=== PATIENT | male | born 1935 | race Caucasian/White ===

== ENCOUNTER → 2016-11-14 | Day surgery (SDC) | payer MEDICARE ==
[~2016-11-14] VITALS: Ht 177.8 cm; Wt 81.5 kg
[~2016-11-14] MED LIST: ACETAMINOPHEN 1000 MG/100 ML VIAL IV SCH; ALBU6.7H INH; BUPIVACAINE LIPOSOME PF 1.3% 20 ML VIAL INFIL ONE; BUPIVACAINE/EPINEPHRINE 0.25% PF 30 ML VIAL ONE; BUPIVACAINE/EPINEPHRINE 0.5% 50 ML VIAL ONE; CHLORHEXIDINE GLUCONATE 2 % 1 PACK (2 CLOTHS) TOPICAL PRN; FERR1TAB58 PO; HYDR-3583 PO; INSULIN HUMAN REGULAR 1,000 UNITS/10 ML VIAL SQ PRN; KETOROLAC TROMETHAMINE 30 MG/ML (IVP) VIAL ONE; KETOROLAC TROMETHAMINE 60 MG/2 ML (IM) VIAL IM ONE; LACTATED RINGER'S 1000 ML IV PRN; METO25TA3 PO; METOPROLOL TARTRATE 25 MG TAB PO PRN; MIDAZOLAM HCL 2 MG/2 ML VIAL ONE; MORPHINE SULFATE 4 MG/ML INJ IV PRN; MULT1TAB84 PO; NITR0.4S SL; OMEP20TA PO; ONDANSETRON HCL 4 MG/2 ML VIAL IV PRN; POVIDONE IODINE 5% (ANTISEPSIS KIT) 4 APPLICATIONS EACH NARE PRN; PROPOFOL 200 MG/20 ML AMP IV ONE; SODIUM CHLORID 0.9% 500 ML IV PRN; SODIUM CHLORIDE 0.9% FLUSH 10 ML FLUSH IV FLUSH PRN; TEMA30CA PO; VITA100036 PO; VITA500T49 PO; ZOCO20TA PO; [UNRECOGNIZED DRUG - CODE] PO; ceFAZolin 2 GM PREMIX 50 ML IV SCH; fentaNYL CITRATE 1000 MCG/20 ML VIAL ONE; oxyCODONE/ACETAMINOPHEN 5 MG/325 MG TAB PO PRN
[2016-11-14 08:59] VITALS: BP 144/85; PULSE 54; RESP 16; TEMP 97.5; O2SAT 100
--- NOTE | 2016-11-14 11:09 | PD.OP ---
cc: Valdez Cox MD; Laureano Meier MD Operative Report Date of Surgery: Nov 14, 2016 Preoperative Diagnosis: Left inguinal hernia Postoperative Diagnosis: Left inguinal hernia Procedure: Repair of left inguinal hernia with pro-holistic nutritionist mesh Anesthesia: Local/MAC Surgeon: Valdez Cox Cut Out And Marking Machine Operator(s): Jaime Vizcarra MS 3 Operation and Findings: Operative findings: The patient was found to have a very thin-walled indirect hernia sac with moderate attenuation of the inguinal floor. No other gross abnormalities were noted. Operative procedure: The patient brought to the operating room and after satisfactory sedation by anesthesia, the left groin was prepped and draped in usual sterile fashion. 1.3% Exparel was used to infiltrate the skin for local anesthesia. A transverse left inguinal incision was then made, carried out sharply through the subcutaneous tissue with the cautery being used for hemostasis. The incision was deepened to the external oblique fascia which was opened in the direction of its fibers down to and through the external ring. The underside of the fascia was cleaned and the spermatic cord was isolated with a Trumbull drain. The indirect hernia sac was identified and dissected free from the cord structures down to the internal ring where the tissue was circumferentially scored. The indirect sac was then reduced within the properitoneal space without problem. Adhesions were cleared from the inguinal floor with the cautery after which the inguinal floor was reapproximated using interrupted 0 Vicryl sutures brought between the internal oblique fascia and the shelving edge of the inguinal ligament. Once the repair been completed and the internal ring and been re-created, a piece of pro-holistic nutritionist mesh was cut to the appropriate shape and secured anterior to the inguinal floor by pressing its posterior Vicryl hooks into the surrounding tissues. After it was seen to lay properly, it was affixed to the pubis with a 0 Prolene suture. Hemostasis was checked for and found be satisfactory. The external oblique fascia was then closed with interrupted 3-0 Vicryl sutures. Further Exparel was infiltrated into the surrounding tissues. The subcutaneous tissue was closed with interrupted 3-0 Vicryl sutures and the skin was closed with interrupted 4-0 Monocryl subcuticular stitches. Steri-Strips were applied the patient was then awakened and taken from the operating room, satisfactory condition, having tolerated the procedure without problem. Estimated blood loss is less than 5 mL's. He has been, sponge, needle counts were reported as being correct 2 at the end of the procedure. Valdez Cox MD Nov 14, 2016 11:09
[2016-11-14 12:09] VITALS: BP 128/74; PULSE 46; RESP 16; TEMP 96.1; O2SAT 98
== END | disposition home or self-care (01) ==
LOC: HSDC 08:20
PROVIDERS: ATTEND Surgery
DX: K40.90 Unilateral inguinal hernia, without obstruction or gangrene, not specified as recurrent (principal)
CPT/HCPCS: 00830; 49505; C1781; C9290; J0131; J0690; J1885; J2250; J3010; J7120

== ENCOUNTER 2017-03-08 07:51 | Day surgery (SDC) | payer MEDICARE ==
[~2017-03-08] VITALS: Ht 177.8 cm; Wt 80.5 kg
[~2017-03-08 07:51] MED LIST changes: -ACETAMINOPHEN 1000 MG/100 ML VIAL IV SCH; -BUPIVACAINE LIPOSOME PF 1.3% 20 ML VIAL INFIL ONE; -BUPIVACAINE/EPINEPHRINE 0.25% PF 30 ML VIAL ONE; -BUPIVACAINE/EPINEPHRINE 0.5% 50 ML VIAL ONE; -CHLORHEXIDINE GLUCONATE 2 % 1 PACK (2 CLOTHS) TOPICAL PRN; -INSULIN HUMAN REGULAR 1,000 UNITS/10 ML VIAL SQ PRN; -KETOROLAC TROMETHAMINE 30 MG/ML (IVP) VIAL ONE; -KETOROLAC TROMETHAMINE 60 MG/2 ML (IM) VIAL IM ONE; -LACTATED RINGER'S 1000 ML IV PRN; -METOPROLOL TARTRATE 25 MG TAB PO PRN; -MIDAZOLAM HCL 2 MG/2 ML VIAL ONE; -MORPHINE SULFATE 4 MG/ML INJ IV PRN; -ONDANSETRON HCL 4 MG/2 ML VIAL IV PRN; -POVIDONE IODINE 5% (ANTISEPSIS KIT) 4 APPLICATIONS EACH NARE PRN; -PROPOFOL 200 MG/20 ML AMP IV ONE; -SODIUM CHLORID 0.9% 500 ML IV PRN; -SODIUM CHLORIDE 0.9% FLUSH 10 ML FLUSH IV FLUSH PRN; -ceFAZolin 2 GM PREMIX 50 ML IV SCH; -fentaNYL CITRATE 1000 MCG/20 ML VIAL ONE; -oxyCODONE/ACETAMINOPHEN 5 MG/325 MG TAB PO PRN
[2017-03-08 08:11] VITALS: BP 117/70; PULSE 58; RESP 20; TEMP 97.7; O2SAT 95
[2017-03-08] MEDS ORDERED: MULTTAB67 PO (08:18)
[2017-03-08] MEDS ORDERED: PYRI100T4 PO (08:18)
[2017-03-08] MEDS ORDERED: FERR325T8 PO (08:18)
[2017-03-08] MEDS ORDERED: BUSP10TA PO (08:18)
[2017-03-08] MEDS ORDERED: SODIUM CHLOR 0.9% 1000 ML IV SCH (08:30)
[2017-03-08 08:43] LABS: AUTOMATED NEUTROPHIL # 1.4 TH/MM3 (1.8-7.7); BASOPHIL % 0.4 % (0.0-2.0); EOSINOPHIL # 0.1 TH/MM3 (0-0.4); EOSINOPHIL % 2.2 % (0.0-4.0); HEMATOCRIT 34.4 % (39.0-51.0); HEMO FLAGS DIFF FINAL; LYMPH % 31.1 % (9.0-44.0); LYMPHOCYTE # 0.9 TH/MM3 (1.0-4.8); MEAN CORPUSCULAR HEMOGLOBIN 34.1 PG (27.0-34.0); MEAN CORPUSCULAR HGB CONC 33.1 % (32.0-36.0); MONO % 18.9 % (0.0-8.0); NEUT % 47.4 % (16.0-70.0); PLATELET COUNT 134 TH/MM3 (150-450); RED BLOOD COUNT 3.34 MIL/MM3 (4.50-5.90); RED CELL DISTRIBUTION WIDTH 15.2 % (11.6-17.2); WHITE BLOOD COUNT 2.9 TH/MM3 (4.0-11.0)
[2017-03-08] MEDS ORDERED: LIDOCAINE HCL 1% 20 ML VIAL ONE (09:36)
[2017-03-08] MEDS ORDERED: MIDAZOLAM HCL 2 MG/2 ML VIAL ONE (09:47)
[2017-03-08] MEDS ORDERED: fentaNYL CITRATE 250 MCG/5 ML AMP ONE (09:47)
[2017-03-08 10:45] VITALS: BP 125/73; PULSE 63; RESP 18; TEMP 97.5; O2SAT 93
[2017-03-08 10:58] LABS: BONE MARROW PROCESSING COMPLETE; IRON STAIN DONE; JENNER GIEMSA STAIN DONE
[2017-03-08 11:00] VITALS: BP 126/72; PULSE 57; RESP 16; O2SAT 93
[2017-03-08] MEDS ORDERED: oxyCODONE/ACETAMINOPHEN 5 MG/325 MG TAB PO PRN (11:00)
[2017-03-08 11:30] VITALS: BP 114/63; PULSE 50; RESP 16; O2SAT 93
[2017-03-08 12:00] VITALS: BP 108/56; PULSE 60; RESP 18; O2SAT 94
[2017-03-08 12:30] VITALS: BP 117/68; PULSE 61; RESP 16; O2SAT 94
--- NOTE | 2017-03-08 14:03 | RADRPT ---
EXAM DATE/TIME: 03/08/2017 10:01 [facility] COMPARISON: No previous studies available for comparison. INDICATIONS : Anemia. SEDATION TIME: 25 minutes BIOPSY SITE: Left ilium. MEDICATION(S): 1.) 2 mg midazolam (Versed) IV 2.) 150 mcg fentanyl (Sublimaze) IV DEVICE(S): 1.) 11 gauge Bone marrow biopsy needle MEDICAL HISTORY : Cardiovascular disease. Gastroesophageal reflux disease. Chronic obstructive pulmonary disease. Hyper tension. SURGICAL HISTORY : CABG Cholecystectomy. Coronary artery stent. TURP. ENCOUNTER: Initial ACUITY: 1 day PAIN SCORE: 0/10 LOCATION: Left pelvis A total of one core specimen(s) were obtained and sent to the laboratory for pathologic evaluation. PROCEDURE: 1. CT guided bone marrow biopsy. Prior to the procedure informed consent was obtained. Any appropriate prior imaging studies were rev iewed. Using automated exposure control and adjustment of the mA and/or kV according to patient size , radiation dose was kept as low as reasonably achievable to obtain optimal diagnostic quality images . DICOM format image data is available electronically for review and comparison. The site was prepped in a sterile fashion. Full sterile technique was used, including cap, mask, juarez rile gloves and gown and a large sterile sheet. Hand hygiene and 2% chlorhexidine and/or betadine/al cohol prep was utilized per protocol for cutaneous antisepsis. The skin and subcutaneous tissues wer e infiltrated with local anesthetic solution. With CT guidance the previously identified target was localized. Biopsy was performed using the presc ribed needle as above. Following biopsy marrow aspiration was performed with repeat puncture. Adequa te hemostasis was obtained with compression at the puncture site. Follow-up CT scan reveals no hemorrhage. Conscious sedation was performed with the prescribed dosages and duration as above in the presence of an independent trained radiology nurse to assist in the monitoring of the patient. EKG and oximetry remained stable throughout the procedure. The patient tolerated the procedure well and there were no complications. The patient was sent to Radiology Outpatient Unit in stable condition. CONCLUSION: 1. Uncomplicated CT guided bone marrow aspirate. 2. Uncomplicated CT guided bone marrow biopsy. Jaylan Andrews MD on March 08, 2017 at 14:01 Board Certified Radiologist. This report was verified electronically.
== END 2017-03-08 12:45 | disposition home or self-care (01) ==
LOC: HRAD 07:51 → HRIP 07:52 → HRAD 12:45
PROVIDERS: ATTEND Internal Medicine Hematology & Oncology
DX: D64.9 Anemia, unspecified (principal); I10 Essential (primary) hypertension; Z95.1 Presence of aortocoronary bypass graft; K21.9 Gastro-esophageal reflux disease without esophagitis; J44.9 Chronic obstructive pulmonary disease, unspecified; I25.10 Atherosclerotic heart disease of native coronary artery without angina pectoris; Z95.5 Presence of coronary angioplasty implant and graft
CPT/HCPCS: 38221; 77012; 85025; 85097; 88305; 88311; 88313; 99152; 99153; C1830; G0364; J2250; J3010; 88184; 88185; 88237; 88264